=== PATIENT | female | born 1960 | race Two or more races ===

== ENCOUNTER 2024-10-13 10:30 | Outpatient (RCR) | payer MEDICAID, SELFPAY ==
--- NOTE | 2024-10-02 14:10 | PT.OIERPT ---
PT OP Initial Eval Patient Information Outpatient Physical Therapy Treatment Date: 10/02/24 Visit Reasons: Pain in Unspecified knee Medical Diagnosis: M25.569 Treatment Dx #1: Bilateral Knee Pain Treatment Dx #2: Bilateral Knee Pain Start of Care: 10/02/24 Date of Onset: 1 year ago Smoking Status Smoking Status: Never smoker Initial Assessment Subjective: Pt is a 64 y/o female reports of chronic knee pain (01/27) started ~ 1 year ago. Pt's most recent xray showed mild-moderate tricompartment OA. Pt has limitation with walking, standing, chores, self care, sit-stand, and performing recreational activities. Objective: Bilateral Knee AROM: 0 deg to 130 deg with pain Bilateral Knee MMTs: grossly 4-/5 Bilateral Hip MMTs: grossly 3+/5 Special Test (+) ant knee compression test Assessment: Pt demonstrate bilateral knee pain consistent with xray finding of knee OA. Pt will attempt physical therapy if pain persist Pt will be refer back to provider for further consultation Short Term and Physical Integration Practitioner Goals 1) Increase bilateral knee AROM WNL in 6 wks to be able to perform chores 2) Decrease knee pain to 2/10 in 6 wks to be able to perform recreational activities 3) Increase knee MMTs grossly 4/5 in 6 wks to be able to perform squatting activities 4) Increase hip MMTs grossly to 4-/5 in 6 wks to be able to perform ADLs. 5) Indep with HEP Treatment Plan 1) Manual Therapy 2) Therapeutic Activities 3) Therapeutic Exercises 4) Modalities (ice, heat) 5) Balance Training Frequency and Duration: 2 x wk for 6 wks Certification Dates: 10/02/24 to 12/30/24 Procedure Charges OP PT Eval Mod Complex 30 minutes: Yes
--- NOTE | 2024-10-13 11:59 | PT.ODAYNRPT ---
PT Outpatient Daily Note OP Daily Note Outpatient Physical Therapy Treatment Date: 10/13/24 Visit Reasons: Pain in Unspecified knee Subjective: Pt's knee about the same and continues to hurt. Objective: Please see flow chart for list of ther ex performed Assessment: tolerate exercises with minimal pain Plan: Continue with PT Length of Time (minutes) of Treatment: 30 Minutes Procedure Charges Therapeutic Exercise 30 minutes: Yes
== END 2024-10-17 23:59 | disposition home or self-care (01) ==
LOC: CPTX 10:30
PROVIDERS: PCP Physician Assistant; Referring Provider Physician Assistant; Visit Provider Physician Assistant
DX: M25.562 Pain in left knee (principal); M25.561 Pain in right knee; G89.29 Other chronic pain
CPT/HCPCS: 97110; 97162

== ENCOUNTER 2024-11-13 10:00 | Outpatient (RCR) | payer MEDICAID, SELFPAY ==
--- NOTE | 2024-10-22 13:20 | PT.ODAYNRPT ---
PT Outpatient Daily Note OP Daily Note Outpatient Physical Therapy Treatment Date: 10/22/24 Visit Reasons: Unspecified knee pain Subjective: Pt has a little knee pain within the knee. Overall feeling okay no new concerns. Objective: Please see flow chart for list of ther ex performed Assessment: tolerate exercises with minimal pain Plan: Continue with PT Length of Time (minutes) of Treatment: 30 Minutes Procedure Charges Therapeutic Exercise 30 minutes: Yes
--- NOTE | 2024-10-29 10:41 | PT.ODAYNRPT ---
PT Outpatient Daily Note OP Daily Note Outpatient Physical Therapy Treatment Date: 10/29/24 Visit Reasons: Unspecified knee pain Subjective: Pt's knee is okay and still has mild pain when she walks a lot Objective: Please see flow chart for list of ther ex performed Assessment: tolerate exercises with minimal pain Plan: Continue with PT Length of Time (minutes) of Treatment: 30 Minutes Procedure Charges Therapeutic Exercise 30 minutes: Yes
--- NOTE | 2024-10-31 09:53 | PT.ODAYNRPT ---
PT Outpatient Daily Note OP Daily Note Outpatient Physical Therapy Treatment Date: 10/31/24 Visit Reasons: Unspecified knee pain Subjective: Pt's knee feels okay. Pt still has pain with lunges exercises around her knee cap Objective: Please see flow chart for list of ther ex performed Assessment: cues to perfrom fwd lunge care home through the range to decrease ant knee pain. Pt able to complete instructed reps Plan: Continue with PT Length of Time (minutes) of Treatment: 30 Minutes Procedure Charges Therapeutic Exercise 30 minutes: Yes
--- NOTE | 2024-11-05 09:31 | PT.ODAYNRPT ---
PT Outpatient Daily Note OP Daily Note Outpatient Physical Therapy Treatment Date: 11/05/24 Visit Reasons: Unspecified knee pain Subjective: Pt's knee hurts a little with fwd lunge exercises, however, it feels okay. Objective: Please see flow chart for list of ther ex performed Assessment: progressing with hip resistance exercises. Pt instructed to work up to pain during lunge exercises which able to complete instructed reps. Plan: Continue with PT Length of Time (minutes) of Treatment: 30 Minutes Procedure Charges Therapeutic Exercise 30 minutes: Yes
--- NOTE | 2024-11-07 14:57 | PT.ODAYNRPT ---
PT Outpatient Daily Note OP Daily Note Outpatient Physical Therapy Treatment Date: 11/07/24 Visit Reasons: Unspecified knee pain Subjective: Pt's knee feels okay. Pt still has pain with fwd lunge exercise especially on the left knee. Objective: Please see flow chart for list of ther ex performed Assessment: improve Hs and gastroc length post PT session; demonstrate full knee flexion with less pain reported Plan: Continue with PT Length of Time (minutes) of Treatment: 30 Minutes Procedure Charges Therapeutic Exercise 30 minutes: Yes
--- NOTE | 2024-11-11 10:18 | PT.ODAYNRPT ---
PT Outpatient Daily Note OP Daily Note Outpatient Physical Therapy Treatment Date: 11/11/24 Visit Reasons: Unspecified knee pain Subjective: Pt's knee is doing okay. Pt mentioned there pain with squatting motions. Objective: Please see flow chart for list of ther ex performed Assessment: cues to work up to the pain with squatting motions; patient able to tolerate up to 60 deg of knee flexion with squatting. Plan: Continue with PT Length of Time (minutes) of Treatment: 30 Minutes Procedure Charges Therapeutic Exercise 30 minutes: Yes
--- NOTE | 2024-11-13 10:25 | PT.ODS1RPT ---
PT OP Progress/Discharge Note Date of Service: 11/13/24 Progress Note/DC Note Progress Note/Discharge Note: Progress Note Patient Information Visit Reasons: Unspecified knee pain Medical Diagnosis: M25.569 Treatment Dx #1: Bilateral Knee Pain Service Continue Service or Discharge: Continue Service Certification Date Certification Dates: 11/13/24 to 02/13/25 Status Subjective: Pt's knee is feeling better. Pt mentioned she wants to continue physical therapy. Pt has been able to stand, walk, and perform chores with less knee pain. Objective: Bilateral Knee AROM: 0 deg to 130 deg Bilateral Knee MMT: grossly 4/5 Bilateral Hip MMTs: grossly 3+/5 SLS: 5 sec bilaterally Assessment: Pt is improving and progressing with physical therapy allowing her to resume light ADLs with less limitation. Pt has not met set goals and will continue to benefit from physical therapy; thank you for your referrals. Plan: Continue with PT/POC and add 8 sessions (2 x wk for 4 wks) Procedure Charges Therapeutic Exercise 30 minutes: Yes
== END 2024-11-17 23:59 | disposition home or self-care (01) ==
LOC: CPTX 10:00
PROVIDERS: PCP Physician Assistant; Referring Provider Physician Assistant; Visit Provider Physician Assistant
DX: M25.562 Pain in left knee (principal); M25.561 Pain in right knee; R26.2 Difficulty in walking, not elsewhere classified; G89.29 Other chronic pain
CPT/HCPCS: 97110

== ENCOUNTER 2024-12-25 14:00 | Outpatient (RCR) | payer MEDICARE, MEDICAID, SELFPAY ==
--- NOTE | 2024-12-18 09:08 | PT.ODAYNRPT ---
PT Outpatient Daily Note OP Daily Note Outpatient Physical Therapy Treatment Date: 12/18/24 Visit Reasons: Pain in unspecified knee Subjective: Pt's knee is doing okay. Objective: Please see flow chart for list of ther ex performed Assessment: tolerate exercises with minimal pain; frequent cues to correct TG squat Plan: Continue with PT Length of Time (minutes) of Treatment: 30 Minutes Procedure Charges Therapeutic Exercise 30 minutes: Yes
--- NOTE | 2024-12-23 14:08 | PT.ODAYNRPT ---
PT Outpatient Daily Note OP Daily Note Outpatient Physical Therapy Treatment Date: 12/23/24 Visit Reasons: Pain in unspecified knee Subjective: Pt's knees hurt a little bit. Pt does not have any new concerns Objective: Please see flow chart for list of ther ex performed Assessment: difficulty performing squatting exercises today due to pain, however, able to complete instructed reps Plan: Continue with PT Length of Time (minutes) of Treatment: 30 Minutes Procedure Charges Therapeutic Exercise 30 minutes: Yes
--- NOTE | 2024-12-25 14:06 | PT.ODS1RPT ---
PT OP Progress/Discharge Note Date of Service: 12/25/24 Progress Note/DC Note Progress Note/Discharge Note: DC Note Patient Information Visit Reasons: Pain in unspecified knee Medical Diagnosis: M25.569 Treatment Dx #1: Bialteral Knee Pain Service Continue Service or Discharge: Discharge Discharge Date: 12/25/24 Status Subjective: Pt continues to ahve knee pain. Pt has not seen PCP lately. Due to pain Pt still has limitation with standing, walking, chores, self care, and performing recreational activities. Objective: Bilateral Knee AROM: all motions are WNL Bilateral Knee MMTs: grossly 4/5 Bilateral Hip MMTs: grossly 3+/5 SLS: 10 sec bilaterally Assessment: Pt demonstrate functional mobility and knee strength, however, no change in pain leading to difficulty with ADLs. Pt will no longer benefit from physical therapy due to plateau towards goals. Pt was instructed on HEP last session and educated to continue exercises to maintain overall mobility. Pt performed all exercises safely, thank you for your referrals. Plan: D/C home with HEP and follow up with MD JONES Procedure Charges Therapeutic Exercise 30 minutes: Yes
== END 2025-01-17 23:59 | disposition home or self-care (01) ==
LOC: CPTX 14:00
PROVIDERS: PCP Physician Assistant; Referring Provider Physician Assistant; Visit Provider Physician Assistant
DX: M25.562 Pain in left knee (principal); M25.561 Pain in right knee; R26.2 Difficulty in walking, not elsewhere classified; G89.29 Other chronic pain
CPT/HCPCS: 97110

== ENCOUNTER → 2025-01-26 | Outpatient (CLI) | payer MEDICARE, MEDICAID, SELFPAY ==
--- NOTE | 2025-01-26 09:00 | XR_ITS ---
Examination: Breast ultrasound, unilateral, right complete Date and time of exam: January 26, 2025 0955 hours INDICATIONS: Mammogram January 29, 2024 28 mm focal asymmetry upper outer right breast mid depth Technique: Real-time mariano scale ultrasonographic imaging performed right breast including all 4 quadrants as well as nipple retroareolar and axillary region. Findings: 2:00 cyst 4 x 2 mm No solid nodules IMPRESSION: BI-RADS Category 2: Benign findings
--- NOTE | 2025-01-26 09:30 | XR_ITS ---
Examination: Diagnostic digital mammography, unilateral, right Computer aided detection 3-D breast Tomosynthesis, unilateral Date and time of exam: January 26, 2025 0952 hours INDICATIONS: Mammogram January 29, 2024 20 mm focal asymmetry upper outer right breast Technique: Nonmagnified MLO, CC views of the right breast have been obtained, reconstructed from 3-D Tomosynthesis images. R2 computer aided detection program utilized for evaluation of suspicious masses and/or abnormal calcifications. 3-D Tomosynthesis images obtained. Findings: Scattered areas of fibroglandular density. No suspicious nodules depicted Impression: BI-RADS category 2: Benign findings Return to yearly follow-up mammography
== END | disposition home or self-care (01) ==
PROVIDERS: PCP Physician Assistant; Referring Provider Physician Assistant; Visit Provider Physician Assistant
DX: R92.321 Mammographic fibroglandular density, right breast (principal)
CPT/HCPCS: 76641; 77061; 77065; G0279

== ENCOUNTER → 2025-07-06 | Outpatient (CLI) | payer MEDICARE, MEDICAID, SELFPAY ==
--- NOTE | 2025-07-06 | XR_ITS ---
Examination: Lumbar spine, 5 views Technique: Lumbar spine AP, lateral, coned lateral lower lumbar spine, bilateral obliques 5 views Exam date and time: July 06 2025, 1257 hours INDICATIONS: Low back pain beginning 3 months ago. FINDINGS: Severe osteopenia Moderate to advanced diffuse facet arthropathy Chronic osteoporotic compressions L4, L2 No acute fracture Moderate disc narrowing L4-L5, L5-S1 IMPRESSION: Moderate degenerative disc disease L4-L5, L5-S1
== END | disposition home or self-care (01) ==
PROVIDERS: PCP Physician Assistant; Referring Provider Physician Assistant; Visit Provider Physician Assistant
DX: M51.370 Other intervertebral disc degeneration, lumbosacral region with discogenic back pain only (principal); M51.360 Other intervertebral disc degeneration, lumbar region with discogenic back pain only
CPT/HCPCS: 72110